=== PATIENT | female | born 2000 | race Caucasian/White ===

== ENCOUNTER 2020-03-24 21:13 | Emergency (ER) | payer MEDICAID ==
--- NOTE | 2020-03-24 21:47 | ERPHSYRPT ---
- History of Present Illness Time Seen by Provider: 03/24/20 21:27 Historian: patient Exam Limitations: no limitations Patient Subjective Stated Complaint: pt states she had her gallbladder out on wednesday and has been feeling nauseous today. states she has had no bowel movement since surgery Triage Nursing Assessment: pt alert and oriented, answers questions approp. pt ambulate into room with slow steady gait noted. respirations nonlabored with lungs cta. abd soft with bowel sounds present. lap sites to rt upper quad x2 with steri strips. lap site to umbilical area with steri strips and tegaderm covering. Physician History: For the past 5.5 hours pt has had constant 5/10 RUQ and periumbilical abdominal pain and nausea. Pt states Dr. Naik removed her gallbladder 2 days ago at [facility]. Last BM was about 4 days ago. Pt states today she started with flatus. Pt denies fever, chest pain, headache. Pt states she has a urinary catheter in place due to incomplete bladder emptying after surgery. Allergies/Adverse Reactions: aripiprazole [From [facility]] Adverse Reaction (Verified 03/24/20 21:37) muscle rigidity Home Medications: Hydrocodone/APAP 5-325 Tab^^^ [[place] 5-325 Tablet^^^] 2 tab PO Q4HPRN PRN MDD 6 03/24/20 [History] Ondansetron HCl [Zofran] 4 mg PO Q6HPRN PRN 03/24/20 [History] Hx Tetanus, Diphtheria Vaccination/Date Given: Yes Hx Influenza Vaccination/Date Given: No Hx Pneumococcal Vaccination/Date Given: No Immunizations Up to Date: Yes Travel Risk - International Travel Have you traveled outside of the country in past 3 weeks: No - Coronavirus Screening Are you exhibiting any of the following symptoms?: No Close contact with a COVID-19 positive Pt in past 14-21 Days: No - Review of Systems Constitutional: No Fever Cardiac: No Chest Pain Abdominal/Gastrointestinal: Abdominal Pain, Nausea, No Vomiting, No Diarrhea Neurological: No Headache All Other Systems: Reviewed and Negative - Past Medical History Pertinent Past Medical History: Yes GI Medical History: GERD Other Medical History: hx of lyme disease, ANEMIA, BEHAVIORAL ISSUES - Past Surgical History Past Surgical History: Yes Gastrointestinal: Cholecystectomy - Social History Smoking Status: Never smoker Exposure to second hand smoke: Yes Drug Use: none Patient Lives Alone: No - Female History Hx Last Menstrual Period: 1 week Hx Now: No - Nursing Vital Signs Nursing Vital Signs: Initial Vital Signs Temperature 98.0 F 03/24/20 21:22 Pulse Rate 107 H 03/24/20 21:22 Respiratory Rate 18 03/24/20 21:22 Blood Pressure 126/86 03/24/20 21:22 O2 Sat by Pulse Oximetry 99 03/24/20 21:22 Pain Scale Pain Intensity 8 - Physical Exam General Appearance: alert Eye Exam: PERRL/EOMI Ears, Nose, Throat Exam: pharynx normal, moist mucous membranes Neck Exam: normal inspection Respiratory Exam: lungs clear Cardiovascular Exam: normal heart sounds Gastrointestinal/Abdomen Exam: soft, normal bowel sounds, tenderness (mild RUQ abdominal tenderness; all incisions appear to be healing well.) Back Exam: normal range of motion Extremity Exam: No pedal edema Neurologic Exam: alert, cooperative Skin Exam: warm, dry SpO2 Interpretation: normal SpO2: 99 O2 Delivery: Room Air - Course Nursing assessment & vital signs reviewed: Yes - CT Exams Abdomen/Pelvis CT Interpretation: Tele-radiologist Report (There is pneumoperitoneum. The amount of free air would be compatible with the history of recent surgery. History of recenty cholecystectomy. No abnormal fluid collections in the gallbladder fossa or adjacent to the liver. No biliary dilatation. There is a free fluid ) Ordered Tests: Active Orders 24 hr Category Date Time Status IV Insertion STAT Care 03/24/20 21:34 Active ABDOMEN AND PELVIS W/0 CONTRAS [CT] Stat Exams 03/24/20 22:52 Taken ACETAMINOPHEN Stat Lab 03/25/20 00:05 Completed AMYLASE Stat Lab 03/24/20 21:54 Completed CBC W DIFF Stat Lab 03/24/20 21:54 Completed CMP Stat Lab 03/24/20 21:54 Completed CULTURE,URINE Stat Lab 03/24/20 21:35 Ordered HCG QUALITATIVE,SERUM Stat Lab 03/24/20 21:54 Completed LIPASE Stat Lab 03/24/20 21:54 Completed SALICYLATE Stat Lab 03/25/20 00:05 Completed UA W/RFX UR CULTURE Stat Lab 03/24/20 22:26 Completed Urine Triage Profile Stat Lab 03/25/20 00:05 Received Medication Summary Discontinued Medications Generic Name Dose Route Start Last Admin Trade Name Freq PRN Reason Stop Dose Admin Fentanyl Citrate 50 mcg 03/24/20 21:34 03/24/20 21:57 Sublimaze 100 Mcg/2 Ml IV 03/24/20 21:35 50 mcg STAT ONE Administration Fentanyl Citrate Confirm 03/24/20 21:51 Sublimaze 100 Mcg/2 Ml Administered 03/24/20 21:52 Dose 100 mcg .ROUTE .STK-MED ONE Fentanyl Citrate 100 mcg 03/25/20 00:31 03/25/20 00:40 Sublimaze 100 Mcg/2 Ml IV 03/25/20 00:32 100 mcg STAT ONE Administration Fentanyl Citrate Confirm 03/25/20 00:37 Sublimaze 100 Mcg/2 Ml Administered 03/25/20 00:38 Dose 100 mcg .ROUTE .STK-MED ONE Sodium Chloride 1,000 mls @ 999 mls/hr 03/24/20 21:34 03/24/20 23:14 Sodium Chloride 0.9% 1000 Ml IV 03/24/20 22:34 Infused .Q1H1M STA Infusion Sodium Chloride Confirm 03/24/20 21:51 Sodium Chloride 0.9% 1000 Ml Administered 03/24/20 21:52 Dose 1,000 mls @ ud .ROUTE .STK-MED ONE Ondansetron HCl 4 mg 03/24/20 21:34 03/24/20 21:57 Zofran 4 Mg/2 Ml Vial IV 03/24/20 21:35 4 mg STAT ONE Administration Ondansetron HCl Confirm 03/24/20 21:50 Zofran 4 Mg/2 Ml Vial Administered 03/24/20 21:51 Dose 4 mg .ROUTE .STK-MED ONE Promethazine HCl 25 mg 03/24/20 23:05 03/24/20 23:08 Phenergan 25 Mg Inj IM 03/24/20 23:06 25 mg STAT ONE Administration Promethazine HCl Confirm 03/24/20 23:07 Phenergan 25 Mg Inj Administered 03/24/20 23:08 Dose 25 mg .ROUTE .STK-MED ONE Lab/Rad Data: Laboratory Result Diagrams 03/24/20 21:54 03/24/20 21:54 Laboratory Results 03/25/20 03/24/20 03/24/20 Range/Units 00:05 22:26 21:54 WBC (4.0-10.5) K/mm3 RBC (4.1-5.4) M/mm3 Hgb (12.0-16.0) gm/dl Hct (35-47) % MCV (78-100) fl MCH (26-32) pg MCHC (32-36) g/dl RDW (11.5-14.0) % Plt Count (150-450) K/mm3 MPV (7.5-11.0) fl Gran % (36.0-66.0) % Eos # (Auto) (0-0.5) Absolute Lymphs (auto) (1.0-4.6) Absolute Monos (auto) (0.0-1.3) Lymphocytes % (24.0-44.0) % Monocytes % (0.0-12.0) % Eosinophils % (0.00-5.0) % Basophils % (0.0-0.4) % Absolute Granulocytes (1.4-6.9) Basophils # (0-0.4) Sodium (137-145) mmol/L Potassium (3.5-5.1) mmol/L Chloride (98-107) mmol/L Carbon Dioxide (22-30) mmol/L Anion Gap (5-15) MEQ/L BUN (7-17) mg/dL Creatinine (0.52-1.04) mg/dL Estimated GFR ML/MIN Glucose (74-106) mg/dL Calcium (8.4-10.2) mg/dL Total Bilirubin (0.2-1.3) mg/dL AST (14-36) U/L ALT (0-35) U/L Alkaline Phosphatase (38-126) U/L Serum Total Protein (6.3-8.2) g/dL Albumin (3.5-5.0) g/dL Amylase (30-110) U/L Lipase (23-300) U/L Serum , Qual NEGATIVE (Negative) Urine Color YELLOW (YELLOW) Urine Appearance CLEAR (CLEAR) Urine pH 7.0 (5-6) Ur Specific [place] 1.020 (1.005-1.025) Urine Protein NEGATIVE (Negative) Urine Ketones NEGATIVE (NEGATIVE) Urine Blood NEGATIVE (0-5) Alfred/ul Urine Nitrite NEGATIVE (NEGATIVE) Urine Bilirubin NEGATIVE (NEGATIVE) Urine Urobilinogen 4 (0-1) mg/dL Ur Leukocyte Esterase NEGATIVE (NEGATIVE) Urine WBC (Auto) 3-5 (0-5) /HPF Urine RBC (Auto) 3-5 (0-2) /HPF U Epithel Cells (Auto) NONE (FEW) /HPF Urine Bacteria (Auto) NONE (NEGATIVE) /HPF Urine Mucus (Auto) SLIGHT (NEGATIVE) /HPF Urine Culture Reflexed NO (NO) Urine Glucose NEGATIVE (NEGATIVE) mg/dL Salicylates < 1.0 L (2-20) mg/dL Acetaminophen < 10 L (10-30) ug/ml 03/24/20 03/24/20 Range/Units 21:54 21:54 WBC 5.8 (4.0-10.5) K/mm3 RBC 4.54 (4.1-5.4) M/mm3 Hgb 13.6 (12.0-16.0) gm/dl Hct 41.4 (35-47) % MCV 91.2 (78-100) fl MCH 30.0 (26-32) pg MCHC 32.9 (32-36) g/dl RDW 13.2 (11.5-14.0) % Plt Count 256 (150-450) K/mm3 MPV 11.1 H (7.5-11.0) fl Gran % 62.8 (36.0-66.0) % Eos # (Auto) 0.02 (0-0.5) Absolute Lymphs (auto) 1.35 (1.0-4.6) Absolute Monos (auto) 0.76 (0.0-1.3) Lymphocytes % 23.4 L (24.0-44.0) % Monocytes % 13.2 H (0.0-12.0) % Eosinophils % 0.3 (0.00-5.0) % Basophils % 0.3 (0.0-0.4) % Absolute Granulocytes 3.62 (1.4-6.9) Basophils # 0.02 (0-0.4) Sodium 138 (137-145) mmol/L Potassium 3.6 (3.5-5.1) mmol/L Chloride 104 (98-107) mmol/L Carbon Dioxide 29 (22-30) mmol/L Anion Gap 7.7 (5-15) MEQ/L BUN 13 (7-17) mg/dL Creatinine 0.59 (0.52-1.04) mg/dL Estimated GFR > 60.0 ML/MIN Glucose 99 (74-106) mg/dL Calcium 9.6 (8.4-10.2) mg/dL Total Bilirubin 1.60 H (0.2-1.3) mg/dL AST 1258 H (14-36) U/L ALT 837 H (0-35) U/L Alkaline Phosphatase 104 (38-126) U/L Serum Total Protein 7.0 (6.3-8.2) g/dL Albumin 4.4 (3.5-5.0) g/dL Amylase 52 (30-110) U/L Lipase 84 (23-300) U/L Serum , Qual (Negative) Urine Color (YELLOW) Urine Appearance (CLEAR) Urine pH (5-6) Ur Specific [place] (1.005-1.025) Urine Protein (Negative) Urine Ketones (NEGATIVE) Urine Blood (0-5) Alfred/ul Urine Nitrite (NEGATIVE) Urine Bilirubin (NEGATIVE) Urine Urobilinogen (0-1) mg/dL Ur Leukocyte Esterase (NEGATIVE) Urine WBC (Auto) (0-5) /HPF Urine RBC (Auto) (0-2) /HPF U Epithel Cells (Auto) (FEW) /HPF Urine Bacteria (Auto) (NEGATIVE) /HPF Urine Mucus (Auto) (NEGATIVE) /HPF Urine Culture Reflexed (NO) Urine Glucose (NEGATIVE) mg/dL Salicylates (2-20) mg/dL Acetaminophen (10-30) ug/ml - Progress Progress: unchanged Discussed with .: Nova ((0001)transfer pt for ERCP.), Other (Spoke with Dr. Reynoso([phone]) who accepted pt for transfer to [facility] ER.) - Departure Departure Disposition: Transfer ([facility] ER) Clinical Impression: Abdominal pain, S/P Cholecystectomy day 3, Elevated AST, ALT & BILIRUBIN, Nausea Condition: Stable Critical Care Time: No Referrals: MONTRELL LYNCH DO [Primary Care Provider] -
[2020-03-24] MEDS ORDERED: Zofran 4 MG/2 ML VIAL ONE (21:50)
[2020-03-24] MEDS ORDERED: SUBLIMAZE 100 MCG/2 ML ONE (21:51)
[2020-03-24] MEDS ORDERED: Sodium Chloride 0.9% 1000 ML 1,000 ML ONE (21:51)
[2020-03-24] MEDS: Sodium Chloride 0.9% 1000 ML 1,000 ML IV STA (21:56)
[2020-03-24] MEDS: SUBLIMAZE 100 MCG/2 ML IV ONE (21:57)
[2020-03-24] MEDS: Zofran 4 MG/2 ML VIAL IV ONE (21:57)
[2020-03-24 22:00] LABS: Absolute Neutrophil Ct (ANC) 3.62 (1.4-6.9); BASOPHIL % 0.3 % (0.0-0.4); Basophil (Absolute #) 0.02 (0-0.4); Eosinophil % 0.3 % (0.00-5.0); Eosinophil (Absolute #) 0.02 (0-0.5); Hematocrit 41.4 % (35-47); Hemoglobin 13.6 gm/dl (12.0-16.0); Lymphocyte (Absolute #) 1.35 (1.0-4.6); Lymphocytes % 23.4 % (24.0-44.0); Mean Cell Volume 91.2 fl (78-100); Mean Corpuscular Hgb Concent. 32.9 g/dl (32-36); Mean Platelet Volume 11.1 fl (7.5-11.0); Monocyte (Absolute #) 0.76 (0.0-1.3); Monocytes % 13.2 % (0.0-12.0); Neutrophil % 62.8 % (36.0-66.0); Platelet Count 256 K/mm3 (150-450); Red Blood Count 4.54 M/mm3 (4.1-5.4); Red Cell Distribution Width 13.2 % (11.5-14.0); White Blood Count 5.8 K/mm3 (4.0-10.5)
[2020-03-24 22:06] LABS: ALBUMIN 4.4 g/dL (3.5-5.0); ALKALINE PHOSPHATASE 104 U/L (38-126); AMYLASE 52 U/L (30-110); ANION GAP 7.7 MEQ/L (5-15); BLOOD UREA NITROGEN 13 mg/dL (7-17); CHLORIDE 104 mmol/L (98-107); Calcium 9.6 mg/dL (8.4-10.2); Carbon Dioxide 29 mmol/L (22-30); Creatinine 1 0.59 mg/dL (0.52-1.04); EST GLOMERULAR FILTRATION RATE > 60.0 ML/MIN; Glucose 99 mg/dL (74-106); LIPASE 84 U/L (23-300); Potassium 3.6 mmol/L (3.5-5.1); SODIUM 138 mmol/L (137-145)
[2020-03-24 22:14] LABS: SGOT/AST 1258 U/L (14-36); SGPT/ALT 837 U/L (0-35)
[2020-03-24 22:31] LABS: Appearance CLEAR (CLEAR); Bilirubin NEGATIVE (NEGATIVE); Blood NEGATIVE Ery/ul (0-5); Glucose NEGATIVE (NEGATIVE); Ketones NEGATIVE (NEGATIVE); Leukocyte Esterase NEGATIVE (NEGATIVE); Mucus SLIGHT /HPF (NEGATIVE); Nitrite NEGATIVE (NEGATIVE); Protein,Urine Dip NEGATIVE (Negative); Urobilinogen 4 mg/dL (0-1)
[2020-03-24] MEDS ORDERED: Phenergan 25 MG INJ ONE (23:07)
[2020-03-24] MEDS: Phenergan 25 MG INJ IM ONE (23:08)
[2020-03-25 00:25] LABS: ACETAMINOPHEN < 10 ug/ml (10-30); SALICYLATE < 1.0 mg/dL (2-20)
[2020-03-25 00:31] LABS: Amphetamine,Urine NEGATIVE (NEGATIVE); Barbiturate,Urine NEGATIVE (NEGATIVE); Benzodiazepine,Urine NEGATIVE (NEGATIVE); Cocaine,Urine NEGATIVE (NEGATIVE); Methadone,Urine NEGATIVE (NEGATIVE); Opiate,Urine POSITIVE (NEGATIVE); PCP,Urine NEGATIVE (NEGATIVE); THC,Urine NEGATIVE (NEGATIVE)
[2020-03-25] MEDS ORDERED: SUBLIMAZE 100 MCG/2 ML ONE (00:37)
[2020-03-25] MEDS: SUBLIMAZE 100 MCG/2 ML IV ONE (00:40)
[2020-03-25 01:19] VITALS: BP 111/69; PULSE 87; O2SAT 97
--- NOTE | 2020-03-25 08:52 | XRAY ---
Indication: Abdomen pain, nausea, and vomiting. Status post cholecystectomy 2 days ago. Multiple contiguous axial images obtained through the abdomen and pelvis without contrast as ordered. Comparison: None. Lung bases are clear. Heart is not enlarged. Noncontrasted stomach and bowel loops appear nonobstructed. Appendix not seen. Cholecystectomy clips with tiny right subdiaphragmatic free air and small pelvic free fluid presumed related to recent cholecystectomy. Peguero catheter in situ. Remaining liver, pancreas, spleen, adrenal glands, kidneys, ureters, bladder, uterus, and aorta appear unremarkable for noncontrast exam. Osseous structures intact. Impression: 1. Status post cholecystectomy with tiny free air and free fluid. 2. Remaining CT abdomen/pelvis without contrast exam is negative. Comment: Preliminary interpretation was made by [facility]. No critical discrepancy. None
== END 2020-03-25 01:17 | disposition short-term general hospital (02) ==
LOC: ED 21:13
DX: R10.9 Unspecified abdominal pain (principal); Z90.49 Acquired absence of other specified parts of digestive tract; R94.5 Abnormal results of liver function studies; R11.0 Nausea; R74.01 Elevation of levels of liver transaminase levels; E80.7 Disorder of bilirubin metabolism, unspecified
CPT/HCPCS: 36000; 36415; 74176; 80053; 80307; 81001; 81025; 82150; 83690; 85025; 87077; 87086; 87186; 96360; 96372; 96374; 96375; 96376; 99285; J2405; J2550; J3010